=== PATIENT | male | born 1950 | race American Indian/Alaskan Native ===

== ENCOUNTER 2019-12-16 11:59 | Emergency (ER) | payer SELFPAY ==
[2019-12-16 14:38] LABS: Basophils % (Auto) 0.6 % (0.0-1.8); Eosinophils # (Auto) 0.1 K/mm3 (0.0-0.4); Eosinophils % (Auto) 1.8 % (0.0-4.3); Hematocrit 42.9 % (35.5-45.6); Hemoglobin 14.4 gm/dl (11.8-15.2); Lymphocytes # (Auto) 1.3 K/mm3 (1.2-5.4); Lymphocytes % (Auto) 38.5 % (13.4-35.0); Mean Corpuscular HGB Conc 34 % (32-34); Mean Corpuscular Volume 92 fl (84-94); Monocytes # (Auto) 0.4 K/mm3 (0.0-0.8); Monocytes % (Auto) 11.5 % (0.0-7.3); Platelet Count 87 K/mm3 (140-440); Red Blood Count 4.68 M/mm3 (3.65-5.03)
[2019-12-16 14:58] LABS: Alanine Aminotransferase 14 units/L (7-56); Albumin 4.5 g/dL (3.9-5); BUN/Creatinine Ratio 20; Bilirubin,Direct < 0.2 mg/dL (0-0.2); Blood Urea Nitrogen 22 mg/dL (9-20); Calcium 10.1 mg/dL (8.4-10.2); Hemolysis Index 8
[2019-12-16] MEDS ORDERED: KETOROLAC 30 MG/1 ML INJ IM ONE (16:43)
--- NOTE | 2019-12-16 16:47 | Emergency Department Report ---
HPI - General Chief Complaint: Abdominal Pain Time Seen by Provider: 12/16/19 16:30 - HPI HPI: This is a 69-year-old -[place] male presents to the emergency department with a complaint of low back pain that radiates down through the buttocks, down the legs and to his feet. Sometimes the patient says that his feet will go completely numb. Overall this is been going on since "last year but it has worsened over the past few months." Patient has a history of hypertension and previous colon cancer in 2004. He denies any problems with bowel or bladder, weakness or restriction to range of motion, but describes it as "my legs locked up." He has not taken anything recently for his symptoms prior to presentation. No recent travel or sick contacts at home. He denies any fever, lower extremity edema, rash/lesions. He denies any recent falls or trauma. ED Past Medical Hx - Past Medical History Hx Hypertension: Yes Additional medical history: colon ca 2004 - Social History Smoking Status: Never Smoker - Medications Home Medications: Home Medications Medication Instructions Recorded Confirmed Last Taken Type Cyclobenzaprine [Flexeril] 10 mg PO TID PRN #12 tablet 12/16/19 Unknown Rx Ibuprofen [Motrin 800 MG tab] 800 mg PO Q8HR PRN #20 tablet 12/16/19 Unknown Rx ED Review of Systems ROS: Stated complaint: BACK AND HIP PAIN Other details as noted in HPI Comment: All other systems reviewed and negative Constitutional: denies: chills, fever Eyes: denies: eye pain, vision change ENT: denies: ear pain, throat pain Respiratory: denies: cough, shortness of breath Cardiovascular: denies: chest pain, palpitations Gastrointestinal: denies: abdominal pain, vomiting Genitourinary: denies: dysuria, discharge Musculoskeletal: back pain, arthralgia, myalgia. denies: joint swelling Skin: denies: rash, lesions Neurological: numbness. denies: headache, weakness Physical Exam - Physical Exam Vital Signs: Vital Signs 12/16/19 13:06 Temperature 97.8 F Pulse Rate 53 L Respiratory 18 Rate Blood Pressure 146/73 O2 Sat by Pulse 99 Oximetry Physical Exam: GENERAL: The patient is well-developed well-nourished. HENT: Normocephalic. Atraumatic. Patient has moist mucous membranes. EYES: Extraocular motions are intact. NECK: Supple. Trachea is midline. CHEST/LUNGS: Clear to auscultation. There is no respiratory distress noted. HEART/CARDIOVASCULAR: Regular. There is no tachycardia. ABDOMEN: Abdomen is soft, nontender. Patient has normal bowel sounds. SKIN: Skin is warm and dry. NEURO: The patient is awake, alert, and oriented. The patient is cooperative. The patient has no focal neurologic deficits. Normal speech. MUSCULOSKELETAL: There is no tenderness or deformity. There is no limitation range of motion. Positive straight leg raise test bilaterally. Muscle strength 5 out of 5 for leg extension and dorsi plantarflexion of the feet. BACK: No midline thoracic or lumbar tenderness to palpation, step-off or deformity. There is some bilateral lumbar paraspinal tenderness to palpation. ED Course Vital Signs 12/16/19 13:06 Temperature 97.8 F Pulse Rate 53 L Respiratory 18 Rate Blood Pressure 146/73 O2 Sat by Pulse 99 Oximetry ED Medical Decision Making - Lab Data Result diagrams: 12/16/19 14:16 12/16/19 14:16 - Medical Decision Making This patient presents with some chronic low back pain that radiates down his legs bilaterally, and the patient complains of having some intermittent numbness to the feet. At the time of my examination the patient is neurovascularly intact and has full muscle strength to all extremities. No midline thoracic or lumbar tenderness to palpation but he does have some paraspinal tenderness to palpation. Positive straight leg raise test. Patient's symptoms appear consistent with sciatica and/or lumbar radiculopathy. However, the patient has not had any fall, injury, trauma, and does not have any midline back pain at this time, and therefore I did not feel that the patient needs any imaging. The patient was seen ambulatory in the emergency department and both appears and feels stable. He has no current numbness or paresthesias. Vital signs reassuring. He will be discharged home to follow-up with either orthopedic spine or neurosurgery. Critical Care Time: No Critical care attestation.: If time is entered above; I have spent that time in minutes in the direct care of this critically ill patient, excluding procedure time. ED Disposition Clinical Impression: Lumbar radiculopathy Sciatica Qualifiers: Laterality: bilateral Qualified Code(s): M54.31 - Sciatica, right side; M54.32 - Sciatica, left side Back pain Qualifiers: Back pain location: low back pain Chronicity: acute Back pain laterality: juanita ateral Sciatica presence: with sciatica Sciatica laterality: bilateral sciatica Qualified Code(s): M54.42 - Lumbago with sciatica, left side; M54.41 - Lumbago with sciatica, right side Disposition: TO HOME OR SELFCARE Is pt being admited?: No Condition: Stable Instructions: Sciatica (ED), Lumbar Radiculopathy (ED) Additional Instructions: I am giving you a referral for a local orthopedic group, [facility], and a local neurosurgeon, Dr. Gallego, to follow-up regarding your back pain with radiation to the legs. Please follow-up return to the emergency department with any worsening of your symptoms or with any acute distress. You have been prescribed a medication that is sedating and therefore should not be taken prior to driving, working, and responsible for children and in no way should be mixed with alcohol of any quantity. Prescriptions: Cyclobenzaprine [Flexeril] 10 mg PO TID PRN #12 tablet PRN Reason: Muscle Spasm Ibuprofen [Motrin 800 MG tab] 800 mg PO Q8HR PRN #20 tablet PRN Reason: Pain , Severe (7-10) Referrals: PRIMARY [facility] [Primary Care Provider] - 2-3 Days SOURAV GALLEGO II, MD [Staff Physician] - 2-3 Days [facility] [Provider Group] - 2-3 Days Time of Disposition: 16:47
[2019-12-16 21:33] VITALS: BP 135/76
== END 2019-12-16 17:10 | disposition home or self-care (01) ==
LOC: ED 11:59
DX: M54.16 Radiculopathy, lumbar region (principal); M54.32 Sciatica, left side; M54.31 Sciatica, right side; I10 Essential (primary) hypertension; Z79.899 Other long term (current) drug therapy
CPT/HCPCS: 36415; 80048; 80076; 83690; 85025; 96372; 99283; J1885